=== PATIENT | male | born 1995 | race Caucasian/White ===

== ENCOUNTER 2023-04-10 12:31 | Inpatient (IN) | payer SELFPAY ==
[2023-04-10 12:40] VITALS: BP 180/96; PULSE 96; RESP 20; TEMP 37; O2SAT 99; BMI 25.1
[2023-04-10 12:56] LABS: Add Urine Microscopic? NO; Charge for UA Resulting for Rev
[2023-04-10 12:57] LABS: Basophils % 0.5 %; Eosinophils # 0.1 10^3/uL (0.0-0.8); Eosinophils % 1.3 %; Hematocrit 43.3 % (42.0-52.0); Hemoglobin 13.9 g/dL (11.7-16.6); Lymphocytes # 2.3 10^3/uL (0.8-4.8); Lymphocytes % 26.6 %; Mean Corpuscular HGB Conc 32.1 g/dL (30.0-36.0); Mean Corpuscular Hemoglobin 29.1 pg (28.0-34.0); Mean Corpuscular Volume 90.6 fl (80-94); Mean Platelet Volume 10.3 fL (7.4-10.4); Monocytes # 0.9 10^3/uL (0.2-0.9); Monocytes % 10.5 %; Neutrophils # 5.34 10^3/uL (1.8-7.7); Neutrophils % 60.9 %; Nucleated Red Blood Cells % 0 %; Platelet Count 199 10^3/cmm (130-400); Red Blood Count 4.78 10^6/uL (4.1-5.3); White Blood Count 8.8 10^3/uL (4.0-10.0)
[2023-04-10 13:00] LABS: Bilirubin Urine Neg (Negative); Blood Urine Neg (Negative); Glucose Urine UA Norm (Normal); Ketones Urine Negative (Negative); Leukocyte Esterase Urine Negative (Negative); Nitrate Urine Negative (Negative); Protein Urine Neg (Negative); Specific Gravity, Urine 1.005 (1.005-1.030); Urine Appearance Clear (CLEAR); Urine Color Light yellow (Yellow); Urobilinogen Urine Norm (Negative); pH Urine 5 (5-7)
--- NOTE | 2023-04-10 13:00 | ECG_ITS ---
[facility] Test Date: 2023-04-10 Pat Name: Chuy Craig Department: Room: Gender: Male Census Taker: : 1995 Requested By: Zen Lundy Order Number: [id number] Mimi MD: Omer Bro M.D. Measurements Intervals [place] Rate: 81 P: 61 GA: 148 QRS: 54 QRSD: 91 T: 44 QT: 348 QTc: 405 Interpretive Statements SINUS RHYTHM No previous ECG available for comparison Electronically Signed On 04-10-2023 16:18:28 CDT by Omer Bro M.D. [id number]
--- NOTE | 2023-04-10 13:00 | W.ED.PSYCHS ---
HPI - Psych General: Chief Complaint: Psychiatric Symptoms Stated Complaint: si Time Seen by Provider: 04/10/23 12:33 History of Present Illness: Patient presents to the ER from [facility]. Patient states he is having a lot going on in his life with family and past trauma and anxiety. Patient has suicidal ideations. And wants to be admitted to the stress unit before things get too bad. Patient denies homicidal ideation at this time. Patient is anxious thinking about all these events to give him chest pain. Review of Systems General: Reports: 10 or more systems reviewed and unremarkable except in HPI and below Physical Exam Const: COMMON NORMALS: no acute distress, average body habitus, patient oriented x3, no limitations, healthy appearing, alert and well nourished HENMT: COMMON NORMALS: normocephalic, atraumatic, hearing grossly normal bilaterally, external ears normal, Normal external nose present and moist oral mucous membranes HEAD & SCALP: normocephalic and atraumatic NOSE: Normal external nose present EXTERNAL EAR: Yes external ears normal Eye: COMMON NORMALS: Equal, round and reactive pupils present, EOMs intact bilaterally, conjunctivae normal and no scleral icterus CONJUNCTIVA: Yes conjunctivae normal PUPIL: Yes Equal, round and reactive pupils present Neck/C-Spine: COMMON NORMALS: full ROM, no lymphadenopathy, supple, no meningeal signs, no JVD and Thyroid normal THYROID: Thyroid normal Chest: COMMONS NORMALS: normal inspection of the chest and normal palpation of entire chest wall Resp: COMMON NORMALS: normal respiratory effort, No retractions, No use of accessory muscles and clear to auscultation bilaterally AUSCULTATION: clear to auscultation bilaterally Cardio: COMMON NORMALS: no JVD, regular rate, regular rhythm, S1 normal heart sound present, S2 normal heart sound present, No gallops present (Cardio), No clicks present (Cardio), No murmurs present (Cardio) and No rub (Cardio) RATE: regular rate RHYTHM: regular rhythm HEART SOUNDS: S1 normal heart sound present and S2 normal heart sound present GI: COMMON NORMALS: Normal to inspection, nondistended, normoactive bowel sounds present, Soft to palpation, non-tender, No hepatosplenomegaly present and no masses PALPATION: Yes Soft to palpation and Yes No hepatosplenomegaly present : COMMON NORMALS: Yes no CVA tenderness BLADDER/KIDNEY EXAM: Yes no CVA tenderness Back/Pelvis: COMMON NORMALS: no CVA tenderness Neuro: COMMON NORMALS: patient oriented x3 SENSORIUM/ORIENTATION: Yes alert MENINGEAL SIGNS: Yes no meningeal signs Psych: COMMON NORMALS: mental status grossly normal, Normal thought process present, cooperative and normal affect THOUGHT PROCESS: Normal thought process present THOUGHT CONTENT: Yes Suicidality present Course Vital Signs: Vital signs: Vital Signs Temperature 98.6 F 04/10/23 12:40 Pulse Rate 96 04/10/23 12:40 Respiratory Rate 20 H 04/10/23 12:40 Blood Pressure 180/96 04/10/23 12:40 Pulse Oximetry 99 04/10/23 12:40 Oxygen Delivery Me thod Room Air 04/10/23 12:40 MDM - Psych Medical Decision Making Patient presents to the ER with suicidal ideation. Anxiety makes this worse. Patient in [facility] at the moment. Patient wants to be admitted to the stress unit through get his mind calm down. Dr. Gutierrez was consulted and he agreed for admission for further evaluation and treatment. Differential Diagnosis Likely suicidal ideation, depression and acute anxiety; Unlikely acute psychosis, chronic schizophrenia, bipolar disorder or drug-induced psychotic disorder Medical Records I reviewed the patient's medical records. Lab Data I reviewed the patient's lab results. 04/10/23 12:50 04/10/23 12:50 Laboratory Results WBC 8.8 10^3/uL (4.0-10.0) 04/10/23 12:50 RBC 4.78 10^6/uL (4.1-5.3) 04/10/23 12:50 Hgb 13.9 g/dL (11.7-16.6) 04/10/23 12:50 Hct 43.3 % (42.0-52.0) 04/10/23 12:50 MCV 90.6 fl (80-94) 04/10/23 12:50 MCH 29.1 pg (28.0-34.0) 04/10/23 12:50 MCHC 32.1 g/dL (30.0-36.0) 04/10/23 12:50 RDW 13.0 % (12.1-15.1) 04/10/23 12:50 Plt Count 199 10^3/cmm (130-400) 04/10/23 12:50 MPV 10.3 fL (7.4-10.4) 04/10/23 12:50 Neut % (Auto) 60.9 % 04/10/23 12:50 Lymph % (Auto) 26.6 % 04/10/23 12:50 [place] % (Auto) 10.5 % 04/10/23 12:50 Eos % (Auto) 1.3 % 04/10/23 12:50 Baso % (Auto) 0.5 % 04/10/23 12:50 Neut # (Auto) 5.34 10^3/uL (1.8-7.7) 04/10/23 12:50 Lymph # (Auto) 2.3 10^3/uL (0.8-4.8) 04/10/23 12:50 [place] # (Auto) 0.9 10^3/uL (0.2-0.9) 04/10/23 12:50 Eos # (Auto) 0.1 10^3/uL (0.0-0.8) 04/10/23 12:50 Baso # (Auto) 0.0 10^3/uL (0.0-0.1) 04/10/23 12:50 Nucleated RBC % (auto) 0 % 04/10/23 12:50 Nucleated RBCs # 0.0 /100WBC 04/10/23 12:50 Sodium 133 mmol/L (136-145) L 04/10/23 12:50 Potassium 4.2 mmol/L (3.5-5.1) 04/10/23 12:50 Chloride 97 mmol/L (98-107) L 04/10/23 12:50 Carbon Dioxide 27 mmol/L (22-29) 04/10/23 12:50 Anion Gap 13.2 (5-19) 04/10/23 12:50 BUN 16 mg/dL (6-20) 04/10/23 12:50 Creatinine 1.3 mg/dL (0.7-1.2) H 04/10/23 12:50 GFR Calculation 65.3 mL/min (90-130) L 04/10/23 12:50 Glucose 78 mg/dL (65-115) 04/10/23 12:50 Calculated Osmolality 276 mOsm/kg (285-295) L 04/10/23 12:50 Calcium 9.2 mg/dL (8.5-10.5) 04/10/23 12:50 Total Bilirubin 0.2 mg/dL (0.15-1.2) 04/10/23 12:50 AST 15 U/L (0-40) 04/10/23 12:50 ALT 34 U/L (0-41) 04/10/23 12:50 Alkaline Phosphatase 73 U/L (40-130) 04/10/23 12:50 Total Protein 7.3 g/dL (6.6-8.7) 04/10/23 12:50 Albumin 4.6 g/dL (3.5-5.2) 04/10/23 12:50 Globulin 2.7 g/dL (1.3-4.6) 04/10/23 12:50 Urine Color Light yellow (Yellow) 04/10/23 12:49 Urine Appearance Clear (CLEAR) 04/10/23 12:49 Urine pH 5 (5-7) 04/10/23 12:49 Ur Specific [place] 1.005 (1.005-1.030) 04/10/23 12:49 Urine Protein Neg (Negative) 04/10/23 12:49 Urine Glucose (UA) Norm (Normal) 04/10/23 12:49 Urine Ketones Negative (Negative) 04/10/23 12:49 Urine Blood Neg (Negative) 04/10/23 12:49 Urine Nitrate Negative (Negative) 04/10/23 12:49 Urine Bilirubin Neg (Negative) 04/10/23 12:49 Urine Urobilinogen Norm mg/dL (Negative) 04/10/23 12:49 Ur Leukocyte Esterase Negative (Negative) 04/10/23 12:49 Salicylates < 0.3 mg/dL (3-10) L 04/10/23 12:50 Urine Opiates Screen Negative ng/mL (Negative) 04/10/23 12:49 Acetaminophen < 5.0 ug/mL (10-30) L 04/10/23 12:50 Ur Barbiturates Screen Negative ng/mL (Negative) 04/10/23 12:49 Ur Phencyclidine Scrn Negative ng/mL (Negative) 04/10/23 12:49 Ur Amphetamines Screen Negative ng/mL (Negative) 04/10/23 12:49 U Benzodiazepines Scrn Negative ng/mL (Negative) 04/10/23 12:49 Urine Cocaine Screen Negative ng/mL (Negative) 04/10/23 12:49 U Marijuana (THC) Screen Negative ng/mL (Negative) 04/10/23 12:49 Ethyl Alcohol < 10 mg/dL (0-10) 04/10/23 12:50 EKG Data EKG 1: I personally reviewed and interpreted this EKG as follows: EKG interpretation date: 04/10/23 EKG interpretation time: 13:04 Prior EKG tracings: not available for review Interpretation: EKG showed ventricular rate 81 bpm, DE interval 148, QRS duration 91, QTc 385, sinus rhythm with no ST-T wave changes Discharge Plan Discharge Patient Disposition: Admitted As Inpatient Clinical Impression: Suicidal ideation Condition: Stable Coding Level of Care Code ED Stock Control Supervisor for Balze Martin
[2023-04-10 13:07] LABS: Amphetamines Screen Urine Negative (Negative); Barbiturates Screen Urine Negative (Negative); Benzodiazepines Screen Urine Negative (Negative); Cocaine Screen Urine Negative (Negative); Opiate Screen Urine Negative (Negative); PCP Screen Urine Negative (Negative); THC Screen Urine Negative (Negative)
[2023-04-10] MEDS: LORazepam 2 mg/mL INJ 1 mL 1 MG IM (13:08)
--- NOTE | 2023-04-10 13:13 | PC.PHAR ---
pt is from [facility] ([facility]) [phone]-per eagle from [facility] states the pt hasnt started buspar 5mg bid yet states buspar is to replace vistaril 50mg tid prn eagle states the Dr dced the pts vistaril today-per eagle from [facility] states the pt was on clonazepam 0.5mg bid but states the Dr. is going to dc clonazepam states the dr changed to 0.5mg daily prn for 5 days then stop-notes are made in the pharmacy comments
[2023-04-10 13:16] LABS: Alanine Aminotransferase 34 U/L (0-41); Albumin Level 4.6 g/dL (3.5-5.2); Alkaline Phosphatase 73 U/L (40-130); Anion Gap 13.2 (5-19); Aspartate Amino Transferase 15 U/L (0-40); Blood Urea Nitrogen 16 mg/dL (6-20); Calcium 9.2 mg/dL (8.5-10.5); Carbon Dioxide 27 mmol/L (22-29); Chloride 97 mmol/L (98-107); Globulin 2.7 g/dL (1.3-4.6); Glomerular Filtration Rate 65.3 mL/min (90-130); Glucose 78 mg/dL (65-115); Osmolality Calculated 276 mOsm/kg (285-295); Potassium 4.2 mmol/L (3.5-5.1); Sodium 133 mmol/L (136-145); Total Bilirubin 0.2 mg/dL (0.15-1.2); Total Protein 7.3 g/dL (6.6-8.7)
[2023-04-10 13:17] LABS: Acetaminophen < 5.0 ug/mL (10-30); Alcohol Level < 10 mg/dL (0-10); Creatinine Clr Calc Pharmacy 92.3088; Salicylate < 0.3 mg/dL (3-10)
[2023-04-10 14:33] VITALS: BP 150/92; PULSE 100; RESP 18; TEMP 36.4; O2SAT 97
[2023-04-10 14:42] VITALS: BP 180/96; PULSE 96; RESP 20; O2SAT 99
[2023-04-10] MEDS: nicotine 21 mg Patch 1 PATCH TRANSDERMA (15:16)
[2023-04-10] MEDS: hyDROXYzine 25 mg Capsule 50 MG PO (15:16)
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
[2023-04-10] MEDS: OLANZapine 5 mg ODT PO (17:56)
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
[2023-04-10] MEDS: nicotine 2 mg Gum BUCCAL (18:47)
[2023-04-10 19:53] VITALS: BP 148/87; PULSE 80; RESP 18; TEMP 37.1; O2SAT 96
[2023-04-10] MEDS: quetiapine XR (24HR) 50 mg Tablet 150 MG PO (20:06)
[2023-04-11 06:00] VITALS: BP 129/93; PULSE 84; RESP 18; O2SAT 96
[2023-04-11] MEDS: acetaminophen 325 mg Tablet 650 MG PO (06:41)
[2023-04-11] MEDS: venlafaxine ER (24HR) 75 mg Capsule PO (08:44)
[2023-04-11] MEDS: venlafaxine ER (24HR) 37.5 mg Capsule PO (08:44)
[2023-04-11] MEDS: hyDROXYzine 25 mg Capsule 50 MG PO ×2 (08:44→16:14)
[2023-04-11] MEDS: nicotine 2 mg Gum BUCCAL ×2 (08:46→12:25)
[2023-04-11] MEDS: CLONazepam 0.5 mg Tablet PO ×2 (08:54→21:02)
[2023-04-11] MEDS: ibuprofen 600 mg Tablet PO (12:06)
[2023-04-11 14:00] VITALS: BP 132/82; PULSE 88; RESP 16; TEMP 36.6; O2SAT 99
[2023-04-11] MEDS: nicotine 4 mg lozenge MUCOUS MEM (15:16)
--- NOTE | 2023-04-11 17:44 | W.PM.NPUPNS ---
Subjective NPU Subjective: 27-year-old white male with bipolar disorder admitted with increased suicidality, panic attacks, PTSD and depressed mood in the context of reduction in Klonopin and inpatient drug treatment at [facility]. He had continue to endorse PTSD related symptoms including nightmares. He had reported some relief of anxiety and reported no panic attacks last night. He had reported that he continued to feel overwhelmed by worry. He had reported some difficulties with sleep continuity disruption and frequent awakenings at night. He had reported problems with concentration. He reported that his suicidal thoughts continued to be present at this time. Patient was compliant on the unit and reported continued feelings of hopelessness. He had reported having reoccurring symptoms of PTSD including flashbacks and intense reexperiencing phenomenon. Mental Status Exam MSE Comments: Patient is a casually dressed white male who was pleasant and cooperative on interview. He appeared in moderate distress. His gait was within normal limits. His hygiene was fair. There was no evidence of any abnormal involuntary motor movements tics or tremors appreciated. He was alert and oriented to person place and time. His speech was normal in regards to rate rhythm and prosody. His mood was described as depressed. His affect was restricted in range and mood-congruent. He endorsed suicidal ideation. He denied any homicidal ideation. He did not appear to be responding to internal stimuli. There was no clear evidence of delusional thinking. His attention span appeared variable. He was somewhat hypervigilant. His recent and remote memory appeared grossly intact. His insight is poor. His judgment is poor. His impulse control appeared limited. Vitals/I&O/Wt Last Vital Signs Temp 97.8 F 04/11/23 14:00 Pulse 88 04/11/23 14:00 Resp 16 04/11/23 14:00 BP 132/82 04/11/23 14:00 Pulse Ox 99 04/11/23 14:00 O2 Del Method Room Air 04/11/23 06:00 Weight last 48 hrs Weight 81.647 kg Data NPU 04/10/23 12:50 04/10/23 12:50 A&P Assessment and plan (1) Bipolar disorder, unspecified: (2) PTSD (post-traumatic stress disorder): (3) Panic attacks: (4) Methamphetamine dependence: (5) Suicidal ideation: Plan 27-year-old male with a history of PTSD and bipolar disorder with genetic loading for bipolar disorder admitted with increased distress frequent cycling and mood and recent suicidality in the context of attempting to remain sober and inpatient substance abuse treatment facility. 1.?Encourage individual, group and milieu therapy. 2.?Recommend sober living treatment at the highest level of care to which the patient is willing to commit. 3.??? Continue q-15 minute checks for safety.? 4. Increase Seroquel xr 200mg at 6PM to target bipolar depression, continue klonopin .5mg bid 5. Reduce Effexor 75mg Involuntary Hold Information 96 Hour Hold: 96 Hour Involuntary Admission: No Attestations NPU Medical Necessity Statement*: Inpatient hospitalization is medically necessary and deemed to be the clinically appropriate intervention at this time. We will monitor and initiate medications while making changes as clinically indicated. His likely length of stay is 5 to 7 days. Coding Level of Care Code Acute Code for [facility] Fwd Diagnoses Bipolar disorder, unspecified F31.9 PTSD (post-traumatic stress disorder) F43.10 Panic attacks F41.0 Methamphetamine dependence F15.20 Suicidal ideation R45.851
[2023-04-11 20:22] VITALS: BP 131/76; PULSE 77; RESP 16; TEMP 36.4; O2SAT 98
[2023-04-11] MEDS: quetiapine XR (24HR) 50 mg Tablet 200 MG PO (21:03)
[2023-04-12 06:00] VITALS: BP 124/88; PULSE 71; RESP 17; O2SAT 98
[2023-04-12] MEDS: nicotine 2 mg Gum BUCCAL ×2 (07:53→11:54)
[2023-04-12] MEDS: venlafaxine ER (24HR) 75 mg Capsule PO (07:53)
[2023-04-12] MEDS: CLONazepam 0.5 mg Tablet PO ×2 (07:53→20:09)
[2023-04-12] MEDS: hyDROXYzine 25 mg Capsule 50 MG PO ×2 (09:22→15:02)
[2023-04-12 14:00] VITALS: BP 144/87; PULSE 83; RESP 16; TEMP 36.7; O2SAT 96
[2023-04-12] MEDS: nicotine 4 mg lozenge MUCOUS MEM (14:24)
--- NOTE | 2023-04-12 17:10 | P.NPUPN_ITS ---
Subjective NPU Subjective: 27-year-old white male with bipolar disorder admitted with increased suicidality, panic attacks, PTSD and depressed mood in the context of reduction in Klonopin and inpatient drug treatment at [facility]. Patient stated that he would be going to a different rehabilitation facility. He had reported diminished anxiety with the Klonopin at this time. He reported feeling more calm. He had endorsed no manic symptoms at this time. He had reported some difficulties with falling asleep. He had reported depressed mood and stated that he did not feel excessively tired. He reported feeling less hopeless and stated that he would likely benefit from inpatient hospitalization for substance use particularly methamphetamine. Mental Status Exam MSE Comments: Patient is a casually dressed white male who was pleasant and cooperative on interview. He appeared in mild distress. His gait was within normal limits. His hygiene was fair. There was no evidence of any abnormal involuntary motor movements tics or tremors appreciated. He was alert and oriented to person place and time. His speech was normal in regards to rate rhythm and prosody. His mood was described as depressed. His affect was restricted in range and mood-congruent. He endorsed suicidal ideation. He denied any homicidal ideation. He did not appear to be responding to internal stimuli. There was no clear evidence of delusional thinking. His attention span appeared variable. He was somewhat hypervigilant. His recent and remote memory appeared grossly intact. His insight is poor. His judgment is poor. His impulse control appeared limited. Vitals/I&O/Wt Last Vital Signs Temp 98.1 F 04/12/23 14:00 Pulse 83 04/12/23 14:00 Resp 16 04/12/23 14:00 BP 144/87 04/12/23 14:00 Pulse Ox 96 04/12/23 14:00 O2 Del Method Room Air 04/12/23 06:00 Data NPU 04/10/23 12:50 04/10/23 12:50 A&P Assessment and plan (1) Bipolar disorder, unspecified: (2) PTSD (post-traumatic stress disorder): (3) Panic attacks: (4) Methamphetamine dependence: (5) Suicidal ideation: Plan 27-year-old male with a history of PTSD and bipolar disorder with genetic loading for bipolar disorder admitted with increased distress frequent cycling and mood and recent suicidality in the context of attempting to remain sober and inpatient substance abuse treatment facility. 1.?Encourage individual, group and milieu therapy. 2.?Recommend sober living treatment at the highest level of care to which the patient is willing to commit. 3.??? Continue q-15 minute checks for safety.? 4. Increase Seroquel xr 300mg at 6PM to target bipolar depression, continue klonopin .5mg bid 5. Reduce Effexor 37.5mg x 7 days then discontinue 6. Discharge to inpatient rehab tommorow. Involuntary Hold Information 96 Hour Hold: 96 Hour Involuntary Admission: No Attestations NPU Medical Necessity Statement*: Inpatient hospitalization is medically necessary and deemed to be the clinically appropriate intervention at this time. We will monitor and initiate medications while making changes as clinically indicated. His likely length of stay is 5 to 7 days. Coding Level of Care Code Acute Code for [facility] Fwd Diagnoses Bipolar disorder, unspecified F31.9 PTSD (post-traumatic stress disorder) F43.10 Panic attacks F41.0 Methamphetamine dependence F15.20 Suicidal ideation R45.851
[2023-04-12] MEDS: quetiapine XR (24HR) 300 mg Tablet PO (20:09)
[2023-04-12 21:18] VITALS: BP 130/84; PULSE 76; RESP 18; O2SAT 96
[2023-04-13 06:00] VITALS: BP 113/74; PULSE 97; RESP 18; O2SAT 99
[2023-04-13] MEDS: hyDROXYzine 25 mg Capsule 50 MG PO (07:41)
--- NOTE | 2023-04-13 07:42 | PC.NURSE ---
Patient rating anxiety 10/10. cause of anxiety is another patient. Administered Vistaril 50mg PO.
[2023-04-13] MEDS: venlafaxine ER (24HR) 37.5 mg Capsule PO (08:12)
[2023-04-13] MEDS: CLONazepam 0.5 mg Tablet PO (08:12)
[2023-04-13] MEDS: nicotine 2 mg Gum BUCCAL ×2 (09:25→13:00)
[2023-04-13] MEDS: nicotine 4 mg lozenge MUCOUS MEM (11:05)
[2023-04-13 11:11] VITALS: BP 113/74; PULSE 97; RESP 18; O2SAT 99
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
== END 2023-04-13 13:31 | disposition home or self-care (01) | DRG 885 ==
LOC: ER 13:03 → NP 13:57
PROVIDERS: Admitting Provider Psychiatry & Neurology Psychiatry; Emergency Provider Emergency Medicine; Visit Provider Psychiatry & Neurology Psychiatry
DX: F31.9 Bipolar disorder, unspecified (principal); R45.851 Suicidal ideations; F15.20 Other stimulant dependence, uncomplicated; F43.10 Post-traumatic stress disorder, unspecified; F41.0 Panic disorder [episodic paroxysmal anxiety]; Z62.810 Personal history of physical and sexual abuse in childhood; Z62.811 Personal history of psychological abuse in childhood; F31.30 Bipolar disorder, current episode depressed, mild or moderate severity, unspecified; Z59.00 Homelessness unspecified; Z81.8 Family history of other mental and behavioral disorders; Z81.1 Family history of alcohol abuse and dependence
CPT/HCPCS: 36415; 80053; 80306; 80307; 81003; 85025; 93005; 96372; 97150; 97165; 99238; 99285; J2060